=== PATIENT | female | born 2005 | race Caucasian/White ===

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

== ENCOUNTER 2023-09-05 17:15 | Emergency (ER) | payer OTHER ==
[~2023-09-05] VITALS: Ht 157.5 cm; Wt 76.2 kg
[~2023-09-05 17:15] MED LIST: NEOMYCIN-POLYMY10 M1 OTIC
[2023-09-05] MEDS ORDERED: PRILOSEC OTC20 MG PO (19:08)
[2023-09-05 19:25] VITALS: BP 125/90
--- NOTE | 2023-09-06 06:26 | EKG ---
[facility] [address] [facility] [place], [place] [address] Signed Normal sinus rhythm Normal ECG No previous ECGs available Confirmed by NOBLE POTTER MD ([id number]) on 09/06/2023 6:26:23 AM Electronically Signed By: NOBLE POTTER 09/06/23 0626 PATIENT NAME: ADRIELJULIANNE Electrocardiogram DATE OF : 03 PHYSICIAN: NOBLE POTTER REPORT #: [id number] REPORT IS CONFIDENTIAL AND NOT TO BE RELEASED WITHOUT AUTHORIZATION
== END 2023-09-05 19:20 | disposition home or self-care (01) ==
LOC: ED 17:15
DX: K21.9 Gastro-esophageal reflux disease without esophagitis (principal); R07.89 Other chest pain
CPT/HCPCS: 93005; 93010; 99284-25

== ENCOUNTER 2023-12-06 06:01 | Day surgery (SDC) | payer BC ==
[2023-11-28 09:33] VITALS: BP 118/76
[~2023-12-06] VITALS: Ht 157.5 cm; Wt 79.1 kg
[~2023-12-06 06:01] MED LIST changes: +LACTATED RINGER'S 1,000 ML IV SCH; +OMEPRAZOLE20 MG PO; +ONDANSETRON ODT8 MG PO; +PRILOSEC OTC20 MG PO
[2023-12-06 06:14] VITALS: BP 122/66
[2023-12-06] MEDS ORDERED: LORYNA 3 MG-0.1 EACH PO (06:16)
[2023-12-06] MEDS ORDERED: IBLOOD GLUCOSE TEST STRIP 1 EA TEST VI PRN ×2 (07:00→08:45)
[2023-12-06] MEDS ORDERED: LIDOCAINE HCL 1% 5 ML SDV INJ ONE (07:00)
--- NOTE | 2023-12-06 07:35 | NUR ---
ROUNDS. PT AND FAMILY EXPRESSED CONFIDENCE IN CARE; EXHIBIT STRONG RELATIONAL AND NICOLE RESOURCES. PROVIDED HOSPITALITY; PROVIDED ANXIETY CONTAINMENT; PROVIDED PRAYER. PT AND FAMILY EXPRESSED APPRECIATION.
[2023-12-06] MEDS ORDERED: LIDOCAINE HCL 2% 20 MG/ML VIAL INJ ONE (08:12)
[2023-12-06] MEDS ORDERED: fentaNYL citrate 100 MCG/2 ML VIAL ONE (08:12)
[2023-12-06] MEDS ORDERED: ROCURONIUM BROMIDE 50 MG/5 ML SYR ONE ×2 (08:12→09:28)
[2023-12-06] MEDS ORDERED: DEXAMETHASONE SOD PHOS 4 MG/ML VIAL ONE (08:12)
[2023-12-06] MEDS ORDERED: ondansetron HCL 4 MG/2 ML VIAL ONE (08:12)
[2023-12-06] MEDS ORDERED: SUGAMMADEX SODIUM 200 MG/2 ML ML ONE (08:12)
[2023-12-06] MEDS ORDERED: ACETAMINOPHEN 1,000 MG/100 ML VIAL ONE (08:12)
[2023-12-06] MEDS ORDERED: KETAMINE in NS 50 MG/5 ML SYR ONE (08:12)
[2023-12-06] MEDS ORDERED: LIDOCAINE HCL 2% 5 ML SDV ONE (08:12)
[2023-12-06] MEDS ORDERED: dexmedeTOMIDine HCl 200 MCG/2 ML VIAL ONE (08:12)
[2023-12-06] MEDS ORDERED: propofoL 200 MG/20 ML VIAL ONE (08:12)
[2023-12-06] MEDS ORDERED: MIDAZOLAM HCL 2 MG/2 ML VIAL ONE (08:13)
[2023-12-06] MEDS ORDERED: KETOROLAC TROMETHAMINE 30 MG/ML VIAL ONE (08:13)
[2023-12-06] MEDS ORDERED: fentaNYL citrate 100 MCG/2 ML VIAL IV PRN (08:45)
[2023-12-06] MEDS ORDERED: ondansetron HCL 4 MG/2 ML VIAL IV PRN ×2 (08:45→10:30)
[2023-12-06] MEDS ORDERED: HYDROmorphone HCL 1 MG/ML SYR IV PRN (08:45)
[2023-12-06] MEDS ORDERED: droPERidol 5 MG/2 ML VIAL IV PRN (08:45)
[2023-12-06] MEDS ORDERED: NALOXONE HCL 0.4 MG SYR IV PRN (08:45)
[2023-12-06] MEDS ORDERED: PROCHLORPERAZINE EDISYLATE 10 MG/2 ML VIAL IV PRN ×2 (08:45→10:30)
[2023-12-06] MEDS ORDERED: LACTATED RINGER'S 1,000 ML IV ONE (09:17)
--- NOTE | 2023-12-06 10:27 | NUR ---
12/06/23 Car6 Wendy Perera 1017 PT TO PACU SLEEPING ORAL AIRWAY IN PLACE O2 VIA MASK FOGGING NOTED IN MASK.
[2023-12-06] MEDS ORDERED: SIMETHICONE 125 MG TABLET CHEWABLE PO PRN (10:30)
[2023-12-06] MEDS ORDERED: OXYCODONE/APAP 5/325 TAB PO PRN (10:30)
[2023-12-06] MEDS ORDERED: METOCLOPRAMIDE HCL 10 MG/2 ML SDV IV PRN (10:30)
[2023-12-06] MEDS ORDERED: MAGNESIUM HYDROXIDE/AL HYDROX 30 ML CUP PO PRN (10:30)
[2023-12-06] MEDS ORDERED: FAMOTIDINE 20 MG/ 2 ML VIAL IV PRN (10:30)
[2023-12-06] MEDS ORDERED: MIDAZOLAM HCL 2 MG/2 ML VIAL IV ONE (10:45)
[2023-12-06 11:57] VITALS: BP 116/73
--- NOTE | 2023-12-06 12:03 | NUR ---
1135: PT RETURNS TO DAY SURGERY FROM PACU VIA STRETCHER. AWAKE AND ANXIOUS ON ARRIVAL. CRYING INTERMITTENTLY. DISCUSSED EFFECTS OF THE ANESTHESIA AND PT VOICES UNDERSTANDING. VSS, RESP EVEN AND UNLABORED. REPORTS PAIN LEVEL 3/10, UNCOMFORTABLE. DISCUSSED PAIN MANAGEMENT AND PT VOICES UNDERSTANDING. CRACKERS AND ICE WATER PROVIDED. PERIPAD DRY AND LAP SITE BANDAGES INTACT. UMBILICAL SITE WITH MINIMAL RED DRAINAGE. SCDS IN PLACE. PO PAIN RX ADMINISTERED ORDERED AND LIGHTS DIMMED FOR PT COMFORT. HEAT PACK PLACED ABOVE LAP SITES ON ABDOMEN. CALL LIGHT WITHIN REACH, PT WITH NO FURTHER NEEDS
--- NOTE | 2023-12-06 12:43 | NUR ---
1135: PT RESTS COMFORTABLY WITH EYES CLOSED IN BED IN DARKENED ROOM. LEFT UNDISTURBED AT THIS TIME. MOTHER ATTENTIVE AT THE BEDSIDE
[2023-12-06] MEDS ORDERED: SIMETHICONE 125 MG TABLET CHEWABLE PO SCH (13:00)
[2023-12-06 13:35] VITALS: BP 115/70
--- NOTE | 2023-12-06 13:50 | NUR ---
1335: PT USES CELLPHONE IN STRETCHER. AWAKE AND ALERT. LESS EMOTIONAL THAN PREVIOUSLY. VSS, RESP EVEN AND UNLABORED. REPORTS BRODY PAIN LEVEL. BRODY PO INTAKE. IV CONVERTED TO SL AND SCDS REMOVED. PT DANGLED AT THE BEDSIDE. BRODY WELL, DENIES DIZZINESS AND SOB. AMBULATES TO BR WITH STANDBY FROM THIS RN. STEADY GAIT. UNABLE TO VOID AT THIS TIME AND DENIES URGE. BACK TO STRETCHER. UMBILICAL LAP SITE REINFORCED. JELLO PROVIDED. PT COMFORTABLE WITHOUT NEEDS, CALL LIGHT WITHIN REACH
[2023-12-06 14:35] VITALS: BP 114/74
--- NOTE | 2023-12-06 14:59 | NUR ---
1435: PT COMFORTABLE IN STRETCHER. REPORTS BRODY PAIN LEVEL. VSS, RESP EVEN AND UNLABORED. NO CHANGE TO LAP SITES. PT AMBULATES TO BR WITH STANDBY FROM THIS RN. STEADY GAIT. CONTD DIFFICULTY URINATING. BACK TO STRETCHER. BLADDER SCANNER TO THE BEDSIDE, 614MLS ESTIMATES. PT GIVEN FRESH ICE WATER. TO ATTEMPT AGAIN 1505: PT USES CALL LIGHT APPROPRIATELY WITH URGE TO VOID. TO BR, SUCCESSFULLY VOIDS 400MLS PINK TINGED URINE. BACK TO ROOM TO DRESS FOR DC
--- NOTE | 2023-12-06 15:33 | NUR ---
1515: SL REMOVED WITH CATH TIP INTACT AND PRESSURE APPLIED TO SITE, WNL. DC INSTRUCTIONS PROVIDED AND DISCUSSED ORDERED. PT VOICES UNDERSTANDING AND DENIES QUESTIONS AND CONCERNS AT THIS TIME. WHEELED OFF OF UNIT IN WC BY THIS RN. TRANSFERS INTO VEHICLE INDEPENDENTLY AND APPROPRIATELY. NO PHYSICAL S/S OF DISTRESS AT THIS TIME
--- NOTE | 2023-12-08 15:39 | PATH ---
[facility] [address], [place] [address] Signed SPECIMEN(S): A ENDOMETRIAL CURETTINGS AND POLYP SPECIMEN(S): B ENDOMETRIOSIS OF PELVIS SPECIMEN SOURCE: A. ENDOMETRIAL CURETTINGS AND POLYP B. ENDOMETRIOSIS OF PELVIS CLINICAL HISTORY: Deep dyspareunia; dysmenorrhea; chronic cystic cervicitis FINAL PATHOLOGIC DIAGNOSIS: A. Endometrium, curettage: - Proliferative phase endometrium with a benign endometrial polyp; no hyperplasia or neoplasia identified - Fragments of benign endocervical tissue B. "Endometriosis of pelvis": - Endometriosis BRP MICROSCOPIC EXAMINATION: Histologic sections of all submitted blocks are examined by light microscopy. These findings, together with the gross examination, support the pathologic diagnosis. GROSS DESCRIPTION: A. The specimen, labeled and designated "Rickie, endometrial curettings and polyp," is received in formalin and consists of irregular shaped pink-antonio, membranous and mucinous tissue fragments that aggregate measure 3.5 x 3.0 x 0.7 cm. Entirely submitted in (A1-A2). B. The specimen, labeled and designated "Columbia, endometriosis of pelvis," is received in formalin and consists of two pink-antonio, soft, focally congested tissue fragments that aggregate measure 1.5 x 1.2 x 0.3 cm. Specimen is sectioned and entirely submitted in (B1). JS (under the direct supervision of a pathologist) The Gross Description was prepared using a voice recognition system. The report was reviewed for accuracy; however, sound-alike word errors, addition and/or deletions may occur. If there is any question about this report, please contact Client Services. ADDITIONAL NOTES: Immunohistochemical and/or in situ hybridization studies if performed in this PATIENT NAME: JULIANNE MOREL PATHOLOGY DATE OF : 03 REPORT #: [id number] PHYSICIAN: EMIGDIO AMARO PCP: SERENITY MUNSON PA-C REPORT IS CONFIDENTIAL AND NOT TO BE RELEASED WITHOUT AUTHORIZATION [facility] [address], [place] [address] Signed case included appropriate positive controls that reacted as expected. This test was developed and its performance characteristics determined by [facility]. It has not been cleared or approved by the U.S. Food and Drug Administration. The FDA has determined that such clearance or approval is not necessary. This test is used for clinical purposes. It should not be regarded as investigational or for research. [facility] is certified under the Clinical Laboratory Improvement Amendments of 1988 (CLIA) as qualified to perform high complexity clinical laboratory testing. PERFORMING LABORATORY: Technical component was performed by [facility], [address] [place] [id number] (CLIA# [id number]). Professional interpretation was performed by [facility] [address] [place] [phone] [id number] Diagnostician: Juan Clemons MD Pathologist Electronically Signed 12/08/2023 Copies: ~ PATIENT NAME: JULIANNE MOREL PATHOLOGY DATE OF : 03 REPORT #: [id number] PHYSICIAN: EMIGDIO AMARO PCP: SERENITY MUNSON PA-C REPORT IS CONFIDENTIAL AND NOT TO BE RELEASED WITHOUT AUTHORIZATION
--- NOTE | 2023-12-12 08:37 | OR ---
[facility] [address] [place], [place] [address] Signed DATE OF OPERATION: 12/06/2023 SURGEON: Julian Garcia DO PREOPERATIVE DIAGNOSES: 1. Dysmenorrhea. 2. Dyspareunia. 3. Abnormal findings on ultrasound. POSTOPERATIVE DIAGNOSES: 1. Dysmenorrhea. 2. Dyspareunia. 3. Abnormal findings on ultrasound. 4. Deep infiltrating endometriosis. PROCEDURES PERFORMED: 1. Hysteroscopy, dilation and curettage. 2. Polypectomy. 3. Laparoscopic excision of deep infiltrating endometriosis. ESTIMATED BLOOD LOSS: 20 mL. COMPLICATIONS: None. DRAINS: Patton to gravity. FLUID DEFICIT: 375 mL. SPECIMENS: 1. Endometrial curettings and polyp. 2. Endometriosis of the pelvic peritoneum. FINDINGS: Normal external genitalia with normal clitoris, urethral meatus, bilateral Carlsbad's, and Bartholin glands. On hysteroscopy, normal appearing cervical canal and polypoid appearance of the endometrium. Otherwise normal endometrial cavity with bilateral tubal Electronically Signed By: JULIAN GARCIA DO (JD) 12/12/23 0837 PATIENT NAME: JULIANNE DAMIAN OPERATIVE REPORT DATE OF : 03 REPORT #: [id number] PHYSICIAN: JULIAN GARCIA DO (JD) PCP: SERENITY MUNSON PA-C REPORT IS CONFIDENTIAL AND NOT TO BE RELEASED WITHOUT AUTHORIZATION [address] [address] Signed ostia. On laparoscopy, normal right upper quadrant, appendix, uterus, tubes, and ovaries. There is superficial endometriosis of the left uterosacral ligament and deep infiltrating endometriosis just inferior to the uterosacral ligament in the pelvic cul-de-sac. All gross endometriosis was excised in total. INDICATIONS: Ms. Damian is a very pleasant 18-year-old female with a long history of dysmenorrhea and dyspareunia. An ultrasound was performed that demonstrated cystic structure to the lower uterine segment or upper cervix. The patient was consented for diagnostic laparoscopy with possible excision of endometriosis and hysteroscopy D and C. Risks, benefits, and alternatives were discussed in detail with the patient. The patient understands and wishes to proceed with the procedure. DESCRIPTION OF PROCEDURE: The patient was taken to the OR where a time-out was performed to confirm correct patient and correct procedure. General anesthesia was adequately established. The patient was prepped and draped in the dorsal lithotomy position with feet in Yellofin stirrups. ICPs were on and running and no preoperative antibiotics or heparin was indicated. A Patton catheter was inserted. A weighted speculum was placed in the vagina and the anterior lip of the cervix was grasped with an Allis clamp. The cervix was gently dilated using Hegar dilators to a #7. An operative hysteroscope was then placed in the cervical os and advanced under direct visualization to the uterine cavity. Normal endocervical canal was identified. Upon entry into the uterine cavity, polypoid appearance of the endometrium was identified including small polyps near both tubal ostia. The MyoSure Lite device was selected and circumferential curettage and polypectomy was performed, restoring normal anatomy to the uterine cavity. The hysteroscope was gently withdrawn and no additional lesions were noted. A O[place]a uterine manipulator was then placed. The surgeon's gloves were changed and attention was turned to the abdomen. Approximately 2 cm below the umbilicus, the skin was infiltrated with 0.25% Marcaine with epinephrine and a small curvilinear incision was made with an 11 blade. The fascia was grasped with hemostats, elevated, and entered sharply using Metzenbaum scissors. Stay suture of 0 Vicryl was placed in the superior and inferior edges of the fascial incision. The peritoneum was then entered bluntly. The Silviano operative port was then placed without difficulty and pneumoperitoneum was established with low opening pressures appreciated. Survey of the abdomen and pelvis was performed demonstrating normal upper quadrants, appendix, normal uterus, tubes, and ovaries. Superficial endometriosis was noted over the left uterosacral ligament and deep infiltrating endometriosis was noted in the cul-de-sac just inferior to the uterosacral ligament. A 5 mm assist port was placed in the left lower and right lower quadrants under direct visualization without complication. The peritoneum near the left uterosacral ligament Electronically Signed By: JULIAN LEONARD) DO RELL 12/12/23 0837 PATIENT NAME: JULIANNE DAMIAN OPERATIVE REPORT DATE OF : 03 REPORT #: [id number] PHYSICIAN: JULIAN GARCIA DO (JD) PCP: SERENITY MUNSON PA-C REPORT IS CONFIDENTIAL AND NOT TO BE RELEASED WITHOUT AUTHORIZATION [facility] [address] [place] [id number] Signed was grasped with Dolphin tip graspers, elevated and the peritoneum was entered sharply and peritoneal incision was then undermined bluntly, freeing all the endometriosis affected peritoneum overlying this. No deep infiltrating endometriosis was noted in this region. The peritoneum was then excised with all gross endometriosis of the left broad/uterosacral ligament area excised. A small amount of oozing was noted on the uterosacral ligament. This was gently fulgurated with monopolar cautery. Attention was then turned to the deep infiltrating nodule in the cul-de-sac. This was a dark purple lesion and upon manipulation was noted to be quite deep and infiltrating. The lesion was grasped with fenestrated grasper and the peritoneum just lateral to this was nicked. Careful dissection was performed in a blunt manner freeing the endometrial implant from underlying structures. The peritoneum was scored circumferentially and the entire endometrial implant was able to be excised without difficulty. This was sent to pathology for further evaluation. The excision sites were irrigated and found to be hemostatic. Tisseel was applied to the dissection sites and hemostasis was appreciated as pneumoperitoneum was reduced. Trocars were removed and all air was removed from the abdomen. Infraumbilical fascia was then reapproximated using 0 Vicryl in a running nonlocked manner. Stay sutures were then plicated to reinforce this incision. Skin was reapproximated using 3-0 Vicryl Rapide in subcuticular manner with excellent hemostasis and cosmesis. The Hulka uterine manipulator was removed and hemostasis of the cervix was appreciated. The patient was then taken to PACU in good and stable condition. Sponge, needle, and instrument count was correct x2 at the end of the procedure. DO MICHAEL Motta/MODL /[id number] Copies: ~ Electronically Signed By: JULIAN GARCIA DO (JD) 12/12/23 0837 PATIENT NAME: JULIANNE DAMIAN OPERATIVE REPORT DATE OF : 03 REPORT #: [id number] PHYSICIAN: JULIAN GARCIA (SAI) PCP: SERENITY MUNSON PA-C REPORT IS CONFIDENTIAL AND NOT TO BE RELEASED WITHOUT AUTHORIZATION
== END 2023-12-06 15:25 | disposition home or self-care (01) ==
LOC: DS 06:01 → OPS 06:01 → DS 07:30 → OPS 15:25
PROVIDERS: ATTEND Obstetrics & Gynecology
PROC: 0UB98ZZ Excision of Uterus, Via Natural or Artificial Opening Endoscopic (ICD-10-PCS; principal; 2023-12-06 07:30)
PROC: 0DBW4ZZ Excision of Peritoneum, Percutaneous Endoscopic Approach (ICD-10-PCS; 2023-12-06 07:30)
DX: N80.30 Endometriosis of pelvic peritoneum, unspecified (principal); N94.12 Deep dyspareunia; N72 Inflammatory disease of cervix uteri
CPT/HCPCS: 00952; J0131; J1100; J1170; J1885; J2001; J2250; J2405; J2704; J3010; J3490; J7121